=== PATIENT | male | born 1965 | race Caucasian/White ===

== ENCOUNTER 2019-11-26 13:49 | Outpatient (REF) | payer OTHER, SELFPAY ==
[2019-11-26 14:18] LABS: COVID-19 Test Negative (Negative)
== END 2019-11-26 13:50 | disposition home or self-care (01) ==
LOC: HO.LAB 13:49
PROVIDERS: Visit Provider Internal Medicine
DX: Z20.828 Contact with and (suspected) exposure to other viral communicable diseases (principal)
CPT/HCPCS: 87635

== ENCOUNTER 2019-12-02 15:32 | Outpatient (REF) | payer OTHER, SELFPAY ==
[2019-12-02 16:55] LABS: SARS COV2 PCR INHOUSE NEGATIVE (Negative)
== END 2019-12-02 15:33 | disposition home or self-care (01) ==
LOC: HO.LAB 15:32
PROVIDERS: Visit Provider Internal Medicine
DX: Z20.828 Contact with and (suspected) exposure to other viral communicable diseases (principal)
CPT/HCPCS: 87635

== ENCOUNTER 2019-12-05 11:53 | Outpatient (REF) | payer OTHER, SELFPAY ==
[2019-12-05 12:11] LABS: COVID-19 Test Negative (Negative)
== END 2019-12-05 11:54 | disposition home or self-care (01) ==
LOC: HO.LAB 11:53
PROVIDERS: Visit Provider Internal Medicine
DX: Z20.828 Contact with and (suspected) exposure to other viral communicable diseases (principal)
CPT/HCPCS: 87635

== ENCOUNTER 2019-12-30 14:23 | Outpatient (REF) | payer OTHER, SELFPAY ==
[2019-12-30 14:44] LABS: COVID-19 Test Negative (Negative)
== END 2019-12-30 14:24 | disposition home or self-care (01) ==
LOC: HO.EMPCOV 14:23
PROVIDERS: Visit Provider Internal Medicine
DX: Z20.828 Contact with and (suspected) exposure to other viral communicable diseases (principal)
CPT/HCPCS: 87635; C9803

== ENCOUNTER 2020-08-06 17:32 | Emergency (ER) | payer OTHER, SELFPAY ==
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
[2020-08-06 17:46] VITALS: BP 146/89; PULSE 76; RESP 18; TEMP 36.9; O2SAT 99; BMI 25.0
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
[2020-08-06] MEDS: Lidocaine 4 % Cream KIT 1 APPL TOPICAL (18:01)
[2020-08-06] MEDS: 0.9 % Sodium Chloride 1,000 ML 999 ML IV (18:01)
[2020-08-06] MEDS: Acetaminophen 325 MG TABLET 975 MG PO (18:01)
[2020-08-06 18:11] LABS: MANUAL DIFF FLAG NO
[2020-08-06 18:17] LABS: INTERNATIONAL NORM RATIO 1.1 (0.9-1.1); Prothrombin Time 12.5 SEC (10.8-13.0)
[2020-08-06 18:20] LABS: Partial Thromboplastin Time 27.6 SEC (24.1-38.0)
--- NOTE | 2020-08-06 18:26 | PC.NURSE ---
RETURNED FROM IMAGING, IV ESTABLISHED, BLOOD LABS OBTAINED AND SENT, MEDICATED PER EMAR. TOLERATING PO W/O ISSUE.
[2020-08-06 18:29] LABS: Basophils Percent Auto 0.4 % (0-2); Hematocrit 40.1 % (42-52); Hemoglobin 12.9 g/dl (14.0-18.0); Imm Gran Abs Auto 0.03 X10*3/uL (0.00-0.03); Imm Gran Pct Auto 0.3 % (0.0-0.4); Lymphocytes Absolute Auto 1.9 X10*3/uL (1.2-4.9); Lymphocytes Percent Auto 17.2 % (20-40); Mean Corpuscular HGB Conc 32.2 g/dl (31.0-36.0); Mean Corpuscular Volume 87.2 fL (80-98); Mean Platelet Volume 10.6 fL (9.4-12.4); Monocytes Percent Auto 8.8 % (2-11); Neutrophils Percent Auto 73.3 % (45-73); Platelet Count 212 X10*3/uL (160-400); Red Cell Distribution Width 13.6 % (11.0-16.0); White Blood Count 10.9 X10*3/uL (4.8-10.8)
[2020-08-06 18:40] LABS: Alanine Aminotransferase 18 U/L (0-40); Albumin Level 4.2 g/dL (3.5-5.0); Alkaline Phosphatase 40 U/L (39-117); Anion Gap 17 (12-20); Aspartate Amino Transferase 32 U/L (5-37); Bilirubin Total 1.7 mg/dL (0.0-1.0); Blood Urea Nitrogen 18 mg/dL (9-16); Calcium 9.2 mg/dL (8.4-10.2); Carbon Dioxide 25 mmol/L (22-29); Chloride 103 mmol/L (96-108); Creatinine Clr Calc Pharmacy 71.7; Estimated Glomerular Filt Rate > 60; Glucose Random 102 mg/dL (60-115); Potassium 4.1 mmol/L (3.3-5.1); Sodium 141 mmol/L (135-145); Total Protein 6.6 g/dL (6.5-8.0)
[2020-08-06] MEDS: iohexoL 350 MG/ML 100 ML INFUS..BTL IV (19:48)
[2020-08-06 20:00] VITALS: BP 124/75; PULSE 67; RESP 15; O2SAT 99
== END 2020-08-06 21:30 | disposition home or self-care (01) ==
PROVIDERS: Nurse Practitioner Primary Care; Emergency Provider Internal Medicine
DX: S22.42XA Multiple fractures of ribs, left side, initial encounter for closed fracture (principal); S70.02XA Contusion of left hip, initial encounter; I10 Essential (primary) hypertension; Z86.718 Personal history of other venous thrombosis and embolism; Z79.82 Long term (current) use of aspirin; Z79.899 Other long term (current) drug therapy; V18.0XXA Pedal cycle driver injured in noncollision transport accident in nontraffic accident, initial encounter; Y93.55 Activity, bike riding; Y92.410 Unspecified street and highway as the place of occurrence of the external cause; Y99.9 Unspecified external cause status
CPT/HCPCS: 36415; 71250; 73030; 73070; 73130; 74177; 80053; 82550; 85025; 85610; 85730; 96360; 99285; Q9967

== ENCOUNTER 2021-02-07 08:04 | Outpatient (REF) | payer OTHER, SELFPAY ==
[2021-02-07 08:43] LABS: COVID-19 Test Negative (Negative); IDNOW Serial# 9DD0AD1C
== END 2021-02-07 08:05 | disposition home or self-care (01) ==
LOC: HO.LAB 08:04
PROVIDERS: Visit Provider Internal Medicine
DX: Z20.822 Contact with and (suspected) exposure to COVID-19 (principal)
CPT/HCPCS: 36415; 87635

== ENCOUNTER 2021-02-12 16:35 | Outpatient (REF) | payer OTHER, SELFPAY ==
[2021-02-12 17:57] LABS: Influenza A PCR NEGATIVE (Negative); Influenza B PCR NEGATIVE (Negative); Resp Syncy Virus RNA Qual PCR POSITIVE (Negative); SARS COV2 PCR INHOUSE NEGATIVE (Negative)
== END 2021-02-12 16:36 | disposition home or self-care (01) ==
LOC: HO.LAB 16:35
PROVIDERS: Visit Provider Internal Medicine
DX: Z20.822 Contact with and (suspected) exposure to COVID-19 (principal)
CPT/HCPCS: 0241U